=== PATIENT | female | born 2000 | race Caucasian/White ===

== ENCOUNTER 2022-04-08 15:19 | Emergency (ER) | payer OTHER, SELFPAY ==
[2022-04-08 15:39] VITALS: BP 147/80; PULSE 100; RESP 18; TEMP 36.8; O2SAT 99; BMI 21.7
[2022-04-08 15:58] LABS: MANUAL DIFF FLAG NO
[2022-04-08 16:00] LABS: Basophils Percent Auto 0.4 % (0-2); Eosinophils Absolute Auto 0.1 X10*3/uL (0.0-0.4); Eosinophils Percent Auto 0.9 % (0-4); Hematocrit 41.9 % (37.0-47.0); Hemoglobin 14.4 g/dl (12.0-16.0); Imm Gran Abs Auto 0.01 X10*3/uL (0.00-0.03); Imm Gran Pct Auto 0.1 % (0.0-0.4); Lymphocytes Absolute Auto 1.6 X10*3/uL (1.2-4.9); Lymphocytes Percent Auto 22.9 % (20-40); Mean Corpuscular HGB Conc 34.4 g/dl (31.0-35.0); Mean Corpuscular Hemoglobin 29.3 pg (27.0-33.0); Mean Corpuscular Volume 85.3 fL (80.0-98.0); Mean Platelet Volume 10.8 fL (9.4-12.3); Monocytes Absolute Auto 0.4 X10*3/uL (0.1-1.2); Monocytes Percent Auto 6.3 % (2-11); Neutrophils Absolute Auto 4.9 x10*3/uL (2.0-8.3); Neutrophils Percent Auto 69.4 % (45-73); Platelet Count 232 X10*3/uL (160-400); Red Blood Count 4.91 X10*6/uL (4.20-5.50); Red Cell Distribution Width 11.8 % (11.0-16.0)
[2022-04-08 16:01] LABS: Appearance Urine CLEAR; Color Urine YELLOW; Glucose Urine UA NEG (NEG); Leukocyte Esterase Urine NEG (NEG); Nitrite Urine NEG (NEG); PH 6.5 (5.0-8.0); Specific Gravity - Urine <= 1.005 (1.005-1.025); UACC Culture Trigger NO; Urine Blood TRACE (NEG); Urine Ketones NEG (NEG); Urine Protein NEG (NEG-TRACE)
[2022-04-08 16:09] LABS: UPreg QC Valid YES; Urine Pregnancy NEGATIVE (NEGATIVE)
[2022-04-08 16:15] LABS: Anion Gap 13 (12-20); Blood Urea Nitrogen 9 mg/dL (9-16); Calcium 10.1 mg/dL (8.4-10.2); Carbon Dioxide 23 mmol/L (22-29); Chloride 106 mmol/L (96-108); Creatinine Clr Calc Pharmacy 80.6; Estimated Glomerular Filt Rate > 60; Glucose Random 108 mg/dL (60-115); Lipase 30 U/L (8-78); Sodium 138 mmol/L (135-145)
[2022-04-08 16:36] LABS: Bacteria Urine 1+ /LPF; RBC Urine 0 /HPF (0); Squamous Epithelial Cell Urine 2+ /LPF; WBC Urine 0-2 /HPF (0-4)
== END 2022-04-09 01:41 | disposition left against medical advice (07) ==
LOC: HO.ED 04-09 01:38
PROVIDERS: Emergency Provider Emergency Medicine
DX: R10.84 Generalized abdominal pain (principal); R11.2 Nausea with vomiting, unspecified; R42 Dizziness and giddiness; Z79.899 Other long term (current) drug therapy
CPT/HCPCS: 36415; 80048; 81001; 81003; 81025; 83690; 85025; 99283

== ENCOUNTER 2022-04-12 17:18 | Inpatient (IN) | payer OTHER, SELFPAY ==
[2022-04-12 17:42] VITALS: BP 121/79; PULSE 72; RESP 18; TEMP 37.2; O2SAT 100; BMI 47.9
--- NOTE | 2022-04-12 17:42 | ED.PSYCH ---
HPI - Psych General Stated Complaint: sectioned- behavioral pod Time Seen by Provider: 04/12/22 17:33 Source: patient Mode of arrival: ambulatory Limitations: no limitations History of Present Illness HPI Narrative: Patient comes to the emergency room complaining of depression. Patient denies suicidal ideation. However, patient states that for the last few years her depression has gradually been getting much worse. Patient states that today she had a breakdown. Patient believes that in patient will be best for her. Patient states that she has never had treatment for depression. Patient denies using drugs. Denies suicidal or homicidal ideation Related Data Allergies Allergy/AdvReac Type Severity Reaction Status Date / Time No Known Allergies Allergy Verified 04/08/22 15:39 [No Known Allergies*] Review of Systems Review of Systems: Constitutional : No Weight loss, No Fever, No Chills, No Night Sweats, No Fatigue, No Malaise ENT/Mouth : No Hearing loss, No Ear Pain, No Nasal Congestion, No Sinus Pain, No Hoarseness, No sore throat, No Rhinorrhea, No Swallowing Difficulty Eyes: No Eye Pain, No Swelling, No Redness, No Foreign Body, No Discharge, No Vision Changes Cardiovascular : No Chest Pain, No SOB, No Dyspnea on Exertion, No Orthopnea, No Edema, No Palpitations Respiratory : No Cough, No Sputum, No Wheezing, No Smoke Exposure, No Dyspnea Gastrointestinal : No Nausea, No Vomiting, No Diarrhea, No Constipation, No abdominal Pain, No Hematochezia, No Melena Genitourinary : no irregular bleeding, No Dysuria, No Urinary Frequency, No Hematuria, No Urinary Incontinence, No Urgency, No Flank Pain, No Urinary Flow Changes, No Hesitancy Musculoskeletal : No joint pain, No Myalgias, No Joint Swelling Skin : No Skin Lesions, No rash Neuro : No Weakness, No Numbness, No Paresthesias, No Loss of Consciousness, No Dizziness, No Headache Psych : Complaining of depression, anxiety, breakdowns Heme/Lymph: No Bruising, No Bleeding,No Lymphadenopathy Endocrine : No Polyuria, No Polydipsia, No Temperature Intolerance Physical Exam Const: Other: Appearance: Alert. Oriented X3. Eyes: Pupils equal, round and reactive to light. ENT: Pharynx normal. Neck: Normal inspection. Neck supple. No lymph nodes noted. No crepitus CVS: Normal heart rate and rhythm. Pulses normal. Normal S1 and S2 Respiratory: No respiratory distress. Breath sounds normal. No Wheezing. No rales Abdomen: Soft and nontender. No rigidity. No distention. Skin: Skin warm and dry. Normal skin color. Normal skin turgor. Extremities: No lower extremity edema. No Lacerations. No Rash Neuro: Oriented X 3. No motor deficit. No sensory deficit. Moving all extremities. No slurred speech. CN 2 through 12 grossly intact Psych: calm, cooperative, teary Course Course Course Narrative: Patient is not suicidal. Not on a Section 12. Patient is willing to stay, patient would like inpatient treatment, believes that would be best for her. Urinalysis, U tox in U pending. [facility] network consult pending Physician observation started at 17:45 Discharge Plan Discharge Clinical Impression: Depression Patient Disposition: Still a Patient
[2022-04-12 18:16] LABS: Appearance Urine CLEAR; Color Urine YELLOW; Glucose Urine UA NEG (NEG); Leukocyte Esterase Urine NEG (NEG); Nitrite Urine NEG (NEG); PH 6.5 (5.0-8.0); Specific Gravity - Urine <= 1.005 (1.005-1.025); UACC Culture Trigger NO; Urine Blood 3+ (NEG); Urine Ketones NEG (NEG); Urine Protein NEG (NEG-TRACE)
[2022-04-12 18:18] LABS: UPreg QC Valid YES; Urine Pregnancy NEGATIVE (NEGATIVE)
[2022-04-12 18:25] LABS: Bacteria Urine 1+ /LPF; Squamous Epithelial Cell Urine 1+ /LPF; WBC Urine 0 /HPF (0-4)
[2022-04-12 18:30] LABS: Amphetamine Screen Urine Not Detected (Not Detect); Barbiturates, Urine Not Detected (Not Detect); Benzodiazepines Screen Urine Not Detected (Not Detect); COVID-19 Test Negative (Negative); Cannabinoid Screen Urine POSITIVE (Not Detect); Cocaine Screen Urine Not Detected (Not Detect); Fentanyl, urine Not Detected (Not Detect); IDNOW Serial# 16C4AD1C; Opiate Screen Urine Not Detected (Not Detect); Phencyclidine Screen Urine Not Detected (Not Detect)
--- NOTE | 2022-04-12 21:00 | MHC.CARE ---
Pt has been accepted for admission to . Auth number [id number] approved by unassigned for 3 days.
[2022-04-13] MEDS: Milk of Magnesia 30 ML ORAL.SUSP PO ×2 (00:56→23:36)
[2022-04-13] MEDS: traZODone HCL 50 MG TABLET PO ×2 (00:56→23:36)
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
[2022-04-13 08:04] VITALS: BP 116/76; PULSE 73; TEMP 37; O2SAT 98
[2022-04-13] MEDS: Magnesium Hydrox/Alum Hydrox 30 ML ORAL.SUSP PO (09:23)
[2022-04-13] MEDS: hydrOXYzine HCL 25 MG TABLET PO ×2 (12:20→23:36)
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
[2022-04-13 22:19] VITALS: BP 126/74; PULSE 76; TEMP 36.6; O2SAT 97
--- NOTE | 2022-04-14 02:05 | PC.NURSE ---
MOM given x2 days for c/o constipation
[2022-04-14 06:00] VITALS: BP 124/58; PULSE 78; TEMP 36.4; O2SAT 99
[2022-04-14 17:41] VITALS: BP 111/59; PULSE 100; TEMP 36.7; O2SAT 96
[2022-04-14] MEDS: Escitalopram Oxalate 5 MG TABLET PO (20:50)
--- NOTE | 2022-04-14 22:04 | P.PNPSI_ITS ---
Subjective Subjective Date of Service: 04/14/22 Reason For Visit: sectioned- behavioral pod Subjective Notes: [place] Warning and Conditional Voluntary Healthcare Proxy: No Guardianship: No Medical Problems Affecting Mental Status: No Interim History: Patient seen and discussed with team. I evaluated the pt today and upon inquiry she reports she is depressed because ?I hold stuff in for so long.? She denies SI, says she has never been suicidal. Sx of depression include ?I feel lonely,? crying episodes. She has been ruminating on the past and says ?I feel like a failure, everything that happened was my fault.? She reports onset of depression in high school. Says ?a lot of people failed me.? Pt has a 2 y.o. Daughter who is with her dad, although pt has full custody. Per pt, ?I do a great job, im a really great mother, that?s whats keeping me going.? Says she struggles with anger, will yell at her aunt, easily annoyed, ?Im taking it [her anger] out on the wrong people.?? Reports her anger does not let her walk away, ?I want to argue back.? She is not getting as much sleep as she would like, as her daughter is hyper, active. Pt says she feels ?tired,? ?down.? Also says she is ?overthinking stuff,? feels stressed. Doesnt want to leave the house, wants to be alone due to anxiety, ?I do shake a lot.? Denies A/VH. Endorses PTSD sx, i.e. hypervigilant, feels ?scared? around a lot of people, some nightmares, and flashbacks. Denies issues with self care. I spoke with pt?s Aunt, Salome, who says pt has severe depression. Her aunt denies having concerns of pt hurting herself or others, denies concerns with her parenting. However, says she is ?Tired of trying to help her? as she is aging and has health issues, she is supportive of pt seeking psychiatric help. Discusses that pt has anger that is easily set off.? In the milieu, patient is safe and appropriate in behavior. Denies SI/SIB/HI upon inquiry. Denies irritability or assaultive ideation. Says she feels safe. Attending Groups: Intermittent Review of Systems Acute medical concerns: No Medical Review of Systems: unchanged Mental Status Exam Mental Status Exam Narrative: A&O. Well groomed, good hygiene, normal body habitus/ petite. Good eye contact, attentive. No Tics or Tremors. No abnormal involuntary movements. Calm, cooperative, engaged. Non-pressured speech, spontaneous with regular rate and rhythm, normal volume and prosody. No prolonged speech latency or dysarthria. Mood is ?depressed,? affect is appropriate. Denies SI/SIB/HI upon inquiry. Denies A/VH or delusional thought content. Thoughts are coherent, organized. No known cognitive or memory impairment. Insight/ Judgment fair and adequate. Diagnostics Vital Signs (24Hr): Vital Signs - 24 hr 04/13/22 22:19 04/14/22 06:00 04/14/22 17:41 Temperature 97.8 F 97.5 F 98.0 F Pulse Rate 76 78 100 Blood Pressure 126/74 124/58 L 111/59 L Pulse Oximetry 97 99 96 BMI result Body Mass Index 47.9 Medications Medications Current Medications Acetaminophen (Acetaminophen 325 Mg Tablet) 650 mg PO Q6H PRN PRN Reason: Headache/Pain Mild Scale (1-3) Al Hydroxide/Mg Hydroxide (Magnesium Hydrox/Alum Hydrox 30 Ml Oral.Susp) 30 ml PO Q6H PRN PRN Reason: Heartburn/Nausea Last Admin: 04/13/22 09:23 Dose: 30 ml Documented by: Escitalopram Oxalate (Escitalopram Oxalate 5 Mg Tablet) 5 mg PO BEDTIME KI Last Admin: 04/14/22 20:50 Dose: 5 mg Documented by: Hydroxyzine HCl (Hydroxyzine Hcl 25 Mg Tablet) 25 mg PO Q6H PRN PRN Reason: Anxiety Last Admin: 04/13/22 23:36 Dose: 25 mg Documented by: Magnesium Hydroxide (Milk Of Magnesia 30 Ml Oral.Susp) 30 ml PO DAILY PRN PRN Reason: Constipation Last Admin: 04/13/22 23:36 Dose: 30 ml Documented by: Trazodone HCl (Trazodone Hcl 50 Mg Tablet) 50 mg PO BEDTIME PRN PRN Reason: Insomnia Last Admin: 04/13/22 23:36 Dose: 50 mg Documented by: Allergies Allergies Allergy/AdvReac Type Severity Reaction Status Date / Time No Known Allergies Allergy Verified 04/08/22 15:39 [No Known Allergies*] Assessment & Plan Assessment & Plan (1) MDD (major depressive disorder), recurrent episode, moderate: Status: Acute Code(s): F33.1 - Major depressive disorder, recurrent, moderate (2) Post traumatic stress disorder (PTSD): Status: Acute Code(s): F43.10 - Post-traumatic stress disorder, unspecified Plan Anika is a 21 y.o. Female who carries a dx of MDD recurrent and PTSD. She arrived to [facility] [place] ED due to worsening depression and anger issues and said that she had a ?breakdown. She denied SI/SIB. Utox positive for cannabis. No alcohol abuse. No previous psych hx other than brief OP therapy. Plan: Pt is asleep, declined interview when I gently tried to wake her. 04/14/22: start lexapro 5 mg, increase to 10 mg as tolerated to target sx of depression, anxiety, and irritability. Reviewed risks and benefits including black box warning. Q15 min safety checks, CV Monitor response to medications. Monitor for safety in the milieu. Discharge on stabilization. Patient seen. Chart reviewed. Discussed with team. Obtain collateral contact info?as needed I spent minutes with the patient and/or on the patient floor today, greater than?50% of which was spent counseling/coordinating care. Patient educated on: medication risk/benefits Reason for contiued inpatient stay Substantial Risk for: med/psych decompensation
[2022-04-15 06:42] VITALS: BP 111/63; PULSE 75; RESP 17; TEMP 36.6; O2SAT 96
[2022-04-15] MEDS: Magnesium Hydrox/Alum Hydrox 30 ML ORAL.SUSP PO (08:56)
[2022-04-15] MEDS: hydrOXYzine HCL 25 MG TABLET PO (14:05)
--- NOTE | 2022-04-15 16:58 | HO.PSYCHPN ---
Subjective Subjective Date of Service: 04/15/22 Reason For Visit: sectioned- behavioral pod Healthcare Proxy: No Guardianship: No Medical Problems Affecting Mental Status: No Interim History: This is a first for me. Reports mood symptoms-offers descriptives-crying, overthinking, long hx of depression, anxiety, anger-anger increases depression. I never got help, I messed up and I know I cannot do it myself. I wonder if it is bipolar-I can be nice, a B-face a sad face. I talk to myself about change, about telling my story. Anger is my problem. I have no friends, I trust no one, I have been out in space it feels like for a long time. Tearful, please help me, OK? Reports her mom heard voices Reports living in [facility] [place] 14[facility]19yo Reports ?post depressive sx Reports hx of fall from a third floor building at age 5 Medication Compliance: Yes Side effects from medications: Yes (some GI distress she reports) Attending Groups: Yes Review of Systems Acute medical concerns: No Medical Review of Systems: unchanged Review of Systems Reports behavioral changes Psychiatric: Reports abnormal sleep pattern, Reports anxiety, Reports behavioral changes, Reports depression, Reports difficulty concentrating, Reports hopelessness, Reports irritability, Reports anhedonia, Reports mood swings, Reports homicidal ideation and Reports suicidal ideation Mental Status Exam Mental Status Exam Patient Appearance: Fatigued Patient Orientation: Person, Place, Time and Situation Level of Consciousness: Alert Patient Behavior: Appropriate, Talkative, Cooperative and Good Eye Contact Mood Description: Depressed Affect Description: Flat and Sad Patient Cognition Impaired: No Ability to Follow Directions: Good Speech Pattern: Spontaneous Speech Memory Description: Intact Hallucinations: None Delusions: Not Present Perceptual Disturbances: Depersonalization and Derealization Thought Process: Distracted and Rumination Thought Content: positive for [place], positive for Circumstantial and positive for Suicidal Ideation Depressive Symptoms: Increased Anxiety, Increased Irritability, Difficulty Sleeping, Crying Spells, Loss of Int. in Activity, Feelings of Worthlessness, Hopelessness, Isolating-Friends/Family, Unhappiness, Increased Fatigue, Thoughts of /Suicide, Low Self Esteem, Loss of Energy and Difficulty Concentrating Judgement: Fair Diagnostics Vital Signs (24Hr): Vital Signs - 24 hr 04/14/22 17:41 04/15/22 06:42 Temperature 98.0 F 97.9 F Pulse Rate 100 75 Respiratory Rate 17 Blood Pressure 111/59 L 111/63 Pulse Oximetry 96 96 BMI result Body Mass Index 47.9 Medications Medications Current Medications Acetaminophen (Acetaminophen 325 Mg Tablet) 650 mg PO Q6H PRN PRN Reason: Headache/Pain Mild Scale (1-3) Al Hydroxide/Mg Hydroxide (Magnesium Hydrox/Alum Hydrox 30 Ml Oral.Susp) 30 ml PO Q6H PRN PRN Reason: Heartburn/Nausea Last Admin: 04/15/22 08:56 Dose: 30 ml Documented by: Escitalopram Oxalate (Escitalopram Oxalate 5 Mg Tablet) 5 mg PO BEDTIME KI Last Admin: 04/14/22 20:50 Dose: 5 mg Documented by: Hydroxyzine HCl (Hydroxyzine Hcl 25 Mg Tablet) 25 mg PO Q6H PRN PRN Reason: Anxiety Last Admin: 04/15/22 14:05 Dose: 25 mg Documented by: Magnesium Hydroxide (Milk Of Magnesia 30 Ml Oral.Susp) 30 ml PO DAILY PRN PRN Reason: Constipation Last Admin: 04/13/22 23:36 Dose: 30 ml Documented by: Trazodone HCl (Trazodone Hcl 50 Mg Tablet) 50 mg PO BEDTIME PRN PRN Reason: Insomnia Last Admin: 04/13/22 23:36 Dose: 50 mg Documented by: Allergies Allergies Allergy/AdvReac Type Severity Reaction Status Date / Time No Known Allergies Allergy Verified 04/08/22 15:39 [No Known Allergies*] Assessment & Plan Assessment & Plan (1) MDD (major depressive disorder), recurrent episode, moderate: Status: Acute Code(s): F33.1 - Major depressive disorder, recurrent, moderate (2) Post traumatic stress disorder (PTSD): Status: Acute Code(s): F43.10 - Post-traumatic stress disorder, unspecified Plan Anika is a 21 y.o. Female who carries a dx of MDD recurrent and PTSD. She arrived to [facility] due to worsening depression and anger issues and said that she had a ?breakdown. She denied SI/SIB. Utox positive for cannabis. No alcohol abuse. No previous psych hx other than brief OP therapy. Plan: Pt is asleep, declined interview when I gently tried to wake her. 04/14/22: start lexapro 5 mg, increase to 10 mg as tolerated to target sx of depression, anxiety, and irritability. Reviewed risks and benefits including black box warning. 04/15/22: Continue current plan. Q15 min safety checks, CV Monitor response to medications. Monitor for safety in the milieu. Discharge on stabilization. Patient seen. Chart reviewed. Discussed with team. Obtain collateral contact info?as needed I spent minutes with the patient and/or on the patient floor today, greater than?50% of which was spent counseling/coordinating care. Patient educated on: therapeutic strategies Informed Consent: further education needed Reason for contiued inpatient stay Substantial Risk for: harm to self, inability to function and rapid decompensation
[2022-04-15] MEDS: hydrOXYzine HCL 50 MG TABLET PO ×2 (17:58→23:52)
[2022-04-15 18:00] VITALS: BP 132/87; PULSE 97; RESP 16; TEMP 36.6
[2022-04-15] MEDS: Escitalopram Oxalate 5 MG TABLET PO (21:36)
[2022-04-16] MEDS: traZODone HCL 50 MG TABLET PO (00:29)
[2022-04-16 06:00] VITALS: BP 114/62; PULSE 82; RESP 16; TEMP 36.5; O2SAT 98
[2022-04-16] MEDS: hydrOXYzine HCL 50 MG TABLET PO (08:41)
[2022-04-16 09:14] LABS: Estimated Average Glucose 97 mg/dL
[2022-04-16 09:46] LABS: Cholesterol 144 mg/dL; HDL Cholesterol 51 mg/dL; LDL Cholesterol Calculated 86 mg/dl; Triglycerides 38 mg/dL
[2022-04-16 09:50] LABS: Thyroid Stimulating Hormone 1.03 uIU/mL (0.32-4.0)
[2022-04-16 10:21] LABS: Folate 14.4 ng/mL (> or = 4.0); Vitamin B12 < 146 pg/mL (200-900)
[2022-04-16] MEDS: LORazepam 1 MG TABLET PO (12:04)
[2022-04-16] MEDS: OLANZapine 5 MG TABLET PO ×2 (15:30→22:09)
--- NOTE | 2022-04-16 18:43 | HO.PSYCHPN ---
Subjective Subjective Date of Service: 04/16/22 Reason For Visit: sectioned- behavioral pod Interim History: Met with pt and Luis M DINERO today. Pt's aunt was unable to make the meeting due to illness. As a result we will call her on 04/17 with pt to review her concerns. Pt was very forthcoming about symptoms, concerns and struggles. Reports anger, mood swings, depression, anxiety and at times feeling if she will explode. Discussed mood stabilizer trial and she agrees. Medication Compliance: Yes Side effects from medications: No Attending Groups: Yes Review of Systems Acute medical concerns: No Medical Review of Systems: unchanged Review of Systems Reports behavioral changes Psychiatric: Reports abnormal sleep pattern, Reports anxiety, Reports behavioral changes, Reports depression, Reports difficulty concentrating, Reports hopelessness, Reports irritability, Reports anhedonia, Reports mood swings, Reports homicidal ideation and Reports suicidal ideation Mental Status Exam Mental Status Exam Patient Appearance: Fatigued Patient Orientation: Person, Place, Time and Situation Level of Consciousness: Alert Patient Behavior: Appropriate, Talkative, Cooperative and Good Eye Contact Mood Description: Depressed Affect Description: Flat and Sad Patient Cognition Impaired: No Ability to Follow Directions: Good Speech Pattern: Spontaneous Speech Memory Description: Intact Hallucinations: None Delusions: Not Present Perceptual Disturbances: Depersonalization and Derealization Thought Process: Distracted and Rumination Thought Content: positive for [place], positive for [place] and positive for Suicidal Ideation Depressive Symptoms: Increased Anxiety, Increased Irritability, Difficulty Sleeping, Crying Spells, Loss of Int. in Activity, Feelings of Worthlessness, Hopelessness, Isolating-Friends/Family, Unhappiness, Increased Fatigue, Thoughts of /Suicide, Low Self Esteem, Loss of Energy and Difficulty Concentrating Judgement: Fair Diagnostics Vital Signs (24Hr): Vital Signs - 24 hr 04/16/22 06:00 Temperature 97.7 F Pulse Rate 82 Respiratory Rate 16 Blood Pressure 114/62 Pulse Oximetry 98 BMI result Body Mass Index 47.9 Labs Labs: Laboratory Results - last 48 hr 04/16/22 04/16/22 04/16/22 08:22 08:22 08:22 Estimat Average Glucose 97 Hemoglobin A1c % 5.0 Triglycerides 38 Cholesterol 144 LDL Cholesterol, Calc 86 HDL Cholesterol 51 Vitamin B12 25-OH Vitamin D Total 9.0 Folate TSH 1.03 04/16/22 08:22 Estimat Average Glucose Hemoglobin A1c % Triglycerides Cholesterol LDL Cholesterol, Calc HDL Cholesterol Vitamin B12 < 146 L 25-OH Vitamin D Total Folate 14.4 TSH Medications Medications Current Medications Acetaminophen (Acetaminophen 325 Mg Tablet) 650 mg PO Q6H PRN PRN Reason: Headache/Pain Mild Scale (1-3) Al Hydroxide/Mg Hydroxide (Magnesium Hydrox/Alum Hydrox 30 Ml Oral.Susp) 30 ml PO Q6H PRN PRN Reason: Heartburn/Nausea Last Admin: 04/15/22 08:56 Dose: 30 ml Documented by: Escitalopram Oxalate (Escitalopram Oxalate 5 Mg Tablet) 5 mg PO BEDTIME KI Last Admin: 04/15/22 21:36 Dose: 5 mg Documented by: Hydroxyzine HCl (Hydroxyzine Hcl 50 Mg Tablet) 50 mg PO Q6H PRN PRN Reason: Anxiety Last Admin: 04/16/22 08:41 Dose: 50 mg Documented by: Lorazepam (Lorazepam 1 Mg Tablet) 1 mg PO Q4H PRN PRN Reason: Anxiety Last Admin: 04/16/22 12:04 Dose: 1 mg Documented by: Magnesium Hydroxide (Milk Of Magnesia 30 Ml Oral.Susp) 30 ml PO DAILY PRN PRN Reason: Constipation Last Admin: 04/13/22 23:36 Dose: 30 ml Documented by: Olanzapine (Olanzapine 5 Mg Tablet) 5 mg PO BEDTIME KI Olanzapine (Olanzapine 5 Mg Tablet) 5 mg PO Q4H PRN PRN Reason: anger, agitation Last Admin: 04/16/22 15:30 Dose: 5 mg Documented by: Trazodone HCl (Trazodone Hcl 50 Mg Tablet) 50 mg PO BEDTIME PRN PRN Reason: Insomnia Last Admin: 04/16/22 00:29 Dose: 50 mg Documented by: Allergies Allergies Allergy/AdvReac Type Severity Reaction Status Date / Time No Known Allergies Allergy Verified 04/08/22 15:39 [No Known Allergies*] Assessment & Plan Assessment & Plan (1) MDD (major depressive disorder), recurrent episode, moderate: Status: Acute Code(s): F33.1 - Major depressive disorder, recurrent, moderate (2) Post traumatic stress disorder (PTSD): Status: Acute Code(s): F43.10 - Post-traumatic stress disorder, unspecified Plan Anika is a 21 y.o. Female who carries a dx of MDD recurrent and PTSD. She arrived to [facility] due to worsening depression and anger issues and said that she had a ?breakdown. She denied SI/SIB. Utox positive for cannabis. No alcohol abuse. No previous psych hx other than brief OP therapy. Plan: Pt is asleep, declined interview when I gently tried to wake her. 04/14/22: start lexapro 5 mg, increase to 10 mg as tolerated to target sx of depression, anxiety, and irritability. Reviewed risks and benefits including black box warning. 04/15/22: Continue current plan. 04/16/22: Olanzapine 5 mg hs and 5 mg q 4 hours prn agitation Q15 min safety checks, CV Monitor response to medications. Monitor for safety in the milieu. Discharge on stabilization. Patient seen. Chart reviewed. Discussed with team. Obtain collateral contact info?as needed I spent minutes with the patient and/or on the patient floor today, greater than?50% of which was spent counseling/coordinating care. Patient educated on: medication risk/benefits and therapeutic strategies Informed Consent: further education needed Reason for contiued inpatient stay Substantial Risk for: harm to self, inability to function and rapid decompensation
[2022-04-16] MEDS: Escitalopram Oxalate 5 MG TABLET PO (22:09)
[2022-04-17 06:00] VITALS: BP 111/62; PULSE 79; RESP 16; TEMP 36.5; O2SAT 98
[2022-04-17] MEDS: LORazepam 1 MG TABLET PO (09:13)
[2022-04-17] MEDS: OLANZapine 5 MG TABLET PO ×2 (12:37→21:16)
--- NOTE | 2022-04-17 16:47 | P.PNPSI_ITS ---
Subjective Subjective Date of Service: 04/17/22 Reason For Visit: sectioned- behavioral pod Subjective Notes: Conditional Voluntary Healthcare Proxy: No Guardianship: No Medical Problems Affecting Mental Status: No Interim History: Pt discussed sx of morning anxiety, depression, and I overthink things a lot. Tolerating Olanzapine, reports she is able to sleep. Aunt Chika is ill and unable to come in today. We will schedule a telephone appt for 04/18 to review her concerns. Pt agrees. Medication Compliance: Yes Side effects from medications: No Attending Groups: Intermittent Review of Systems Acute medical concerns: No ?Hx of childhood asthma-? exacerbation Medical Review of Systems: unchanged Review of Systems Psychiatric: Reports anxiety and Reports mood swings Mental Status Exam Mental Status Exam Patient Appearance: Appropriate Patient Orientation: Person, Place, Time and Situation Level of Consciousness: Alert Patient Behavior: Talkative, Cooperative and Good Eye Contact Mood Description: Anxious Affect Description: Anxious Patient Cognition Impaired: No Ability to Follow Directions: Good Speech Pattern: Spontaneous Speech Memory Description: Episodic Impaired Hallucinations: None Delusions: Not Present Perceptual Disturbances: Depersonalization and Derealization Thought Process: Rumination Thought Content: positive for [place] and positive for Circumstantial Depressive Symptoms: Increased Anxiety, Hopelessness, Unhappiness, Low Self Esteem and Difficulty Concentrating Abnormal Motor Activity Signs and Symptoms: Restlessness Judgement: Fair Diagnostics Vital Signs (24Hr): Vital Signs - 24 hr 04/17/22 06:00 Temperature 97.7 F Pulse Rate 79 Respiratory Rate 16 Blood Pressure 111/62 Pulse Oximetry 98 BMI result Body Mass Index 47.9 Labs Labs: Laboratory Results - last 48 hr 04/16/22 04/16/22 04/16/22 08:22 08:22 08:22 Estimat Average Glucose 97 Hemoglobin A1c % 5.0 Triglycerides 38 Cholesterol 144 LDL Cholesterol, Calc 86 HDL Cholesterol 51 Vitamin B12 25-OH Vitamin D Total 9.0 Folate TSH 1.03 04/16/22 08:22 Estimat Average Glucose Hemoglobin A1c % Triglycerides Cholesterol LDL Cholesterol, Calc HDL Cholesterol Vitamin B12 < 146 L 25-OH Vitamin D Total Folate 14.4 TSH Medications Medications Current Medications Acetaminophen (Acetaminophen 325 Mg Tablet) 650 mg PO Q6H PRN PRN Reason: Headache/Pain Mild Scale (1-3) Al Hydroxide/Mg Hydroxide (Magnesium Hydrox/Alum Hydrox 30 Ml Oral.Susp) 30 ml PO Q6H PRN PRN Reason: Heartburn/Nausea Last Admin: 04/15/22 08:56 Dose: 30 ml Documented by: Escitalopram Oxalate (Escitalopram Oxalate 5 Mg Tablet) 5 mg PO BEDTIME KI Last Admin: 04/16/22 22:09 Dose: 5 mg Documented by: Hydroxyzine HCl (Hydroxyzine Hcl 50 Mg Tablet) 50 mg PO Q6H PRN PRN Reason: Anxiety Last Admin: 04/16/22 08:41 Dose: 50 mg Documented by: Lorazepam (Lorazepam 1 Mg Tablet) 1 mg PO Q4H PRN PRN Reason: Anxiety Last Admin: 04/17/22 09:13 Dose: 1 mg Documented by: Magnesium Hydroxide (Milk Of Magnesia 30 Ml Oral.Susp) 30 ml PO DAILY PRN PRN Reason: Constipation Last Admin: 04/13/22 23:36 Dose: 30 ml Documented by: Olanzapine (Olanzapine 5 Mg Tablet) 5 mg PO BEDTIME KI Last Admin: 04/16/22 22:09 Dose: 5 mg Documented by: Olanzapine (Olanzapine 5 Mg Tablet) 5 mg PO Q4H PRN PRN Reason: anger, agitation Last Admin: 04/17/22 12:37 Dose: 5 mg Documented by: Trazodone HCl (Trazodone Hcl 50 Mg Tablet) 50 mg PO BEDTIME PRN PRN Reason: Insomnia Last Admin: 04/16/22 00:29 Dose: 50 mg Documented by: Allergies Allergies Allergy/AdvReac Type Severity Reaction Status Date / Time No Known Allergies Allergy Verified 04/08/22 15:39 [No Known Allergies*] Assessment & Plan Assessment & Plan (1) MDD (major depressive disorder), recurrent episode, moderate: Status: Acute Code(s): F33.1 - Major depressive disorder, recurrent, moderate (2) Post traumatic stress disorder (PTSD): Status: Acute Code(s): F43.10 - Post-traumatic stress disorder, unspecified Plan Anika is a 21 y.o. Female who carries a dx of MDD recurrent and PTSD. She arrived [place] [facility] [place] due to worsening depression and anger issues and said that she had a ?breakdown. She denied SI/SIB. Utox positive for cannabis. No alcohol abuse. No previous psych hx other than brief OP therapy. Plan: Pt is asleep, declined interview when I gently tried to wake her. 04/14/22: start lexapro 5 mg, increase to 10 mg as tolerated to target sx of depression, anxiety, and irritability. Reviewed risks and benefits including black box warning. 04/15/22: Continue current plan. 04/16/22: Olanzapine 5 mg hs and 5 mg q 4 hours prn agitation 04/17/22: Continue current plan. Family contact 04/18 with aunt who is ill today. Q15 min safety checks, CV Monitor response to medications. Monitor for safety in the milieu. Discharge on stabilization. Patient seen. Chart reviewed. Discussed with team. Obtain collateral contact info?as needed I spent minutes with the patient and/or on the patient floor today, greater than?50% of which was spent counseling/coordinating care. Patient educated on: therapeutic strategies Informed Consent: understands and further education needed Reason for contiued inpatient stay Substantial Risk for: inability to function and rapid decompensation
[2022-04-17 18:00] VITALS: BP 107/54; PULSE 99; RESP 16; TEMP 37; O2SAT 98
[2022-04-17] MEDS: Escitalopram Oxalate 5 MG TABLET PO (21:16)
[2022-04-17] MEDS: traZODone HCL 50 MG TABLET PO (22:16)
--- NOTE | 2022-04-17 22:32 | PC.NURSE ---
The pt reported that she was scared by paralyzing nightmares that often occur before she wakes up. She told this RN that, That is why I sleep longer in the morning. Heydi Hernandez notified, recommended to defer issue to Azeb Espinoza
[2022-04-18] MEDS: hydrOXYzine HCL 50 MG TABLET PO ×2 (00:01→10:37)
[2022-04-18 00:11] VITALS: BP 143/88; PULSE 103; RESP 18; O2SAT 99
[2022-04-18 06:00] VITALS: BP 140/84; PULSE 130; RESP 18; O2SAT 98
[2022-04-18 07:00] VITALS: BMI 21.2
[2022-04-18] MEDS: LORazepam 1 MG TABLET PO ×3 (08:05→18:38)
[2022-04-18] MEDS: cloNIDine HCL 0.1 MG TABLET PO ×2 (12:09→19:36)
[2022-04-18 12:10] VITALS: BP 126/84; PULSE 113
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
[2022-04-18 18:41] VITALS: BP 108/67; PULSE 109
[2022-04-18] MEDS: OLANZapine 5 MG TABLET PO (19:36)
[2022-04-18] MEDS: Escitalopram Oxalate 10 MG TABLET PO (19:36)
[2022-04-18 19:37] VITALS: BP 119/86; PULSE 83
[2022-04-18] MEDS: traZODone HCL 50 MG TABLET PO (20:41)
[2022-04-19 06:00] VITALS: BP 123/72; PULSE 100; RESP 16; TEMP 36.9; O2SAT 98
[2022-04-19] MEDS: cloNIDine HCL 0.1 MG TABLET PO ×2 (09:03→20:03)
[2022-04-19] MEDS: LORazepam 1 MG TABLET PO (13:33)
--- NOTE | 2022-04-19 15:05 | HO.PSYCHPN ---
Subjective Subjective Date of Service: 04/19/22 Reason For Visit: sectioned- behavioral pod Subjective Notes: Conditional Voluntary Healthcare Proxy: No Guardianship: No Medical Problems Affecting Mental Status: No Interim History: Review of PTSD with pt who was active, engaged and asking appropriate questions. Anxiety continues to be prominent. [facility] application has been submitted. Medication Compliance: Yes Side effects from medications: No Attending Groups: Intermittent Review of Systems Acute medical concerns: No Medical Review of Systems: unchanged Review of Systems Psychiatric: Reports anxiety and Reports mood swings Mental Status Exam Mental Status Exam Patient Appearance: Appropriate Patient Orientation: Person, Place, Time and Situation Level of Consciousness: Alert Patient Behavior: Talkative, Cooperative and Good Eye Contact Mood Description: Anxious Affect Description: Anxious Patient Cognition Impaired: No Ability to Follow Directions: Good Speech Pattern: Spontaneous Speech Memory Description: Episodic Impaired Hallucinations: None Delusions: Not Present Perceptual Disturbances: Depersonalization and Derealization Thought Process: Rumination Thought Content: positive for [place] and positive for Circumstantial Depressive Symptoms: Increased Anxiety, Hopelessness, Unhappiness, Low Self Esteem and Difficulty Concentrating Abnormal Motor Activity Signs and Symptoms: Restlessness Judgement: Fair Diagnostics Vital Signs (24Hr): Vital Signs - 24 hr 04/18/22 18:41 04/18/22 19:37 04/19/22 06:00 Temperature 98.4 F Pulse Rate 109 H 83 100 Respiratory Rate 16 Blood Pressure 108/67 119/86 123/72 Pulse Oximetry 98 BMI result Body Mass Index 21.2 Medications Medications Current Medications Acetaminophen (Acetaminophen 325 Mg Tablet) 650 mg PO Q6H PRN PRN Reason: Headache/Pain Mild Scale (1-3) Al Hydroxide/Mg Hydroxide (Magnesium Hydrox/Alum Hydrox 30 Ml Oral.Susp) 30 ml PO Q6H PRN PRN Reason: Heartburn/Nausea Last Admin: 04/15/22 08:56 Dose: 30 ml Documented by: Clonidine HCl (Clonidine Hcl 0.1 Mg Tablet) 0.1 mg PO BID KI; Protocol Last Admin: 04/19/22 09:03 Dose: 0.1 mg Documented by: Escitalopram Oxalate (Escitalopram Oxalate 10 Mg Tablet) 10 mg PO BEDTIME KI Last Admin: 04/18/22 19:36 Dose: 10 mg Documented by: Hydroxyzine HCl (Hydroxyzine Hcl 50 Mg Tablet) 50 mg PO Q6H PRN PRN Reason: Anxiety Last Admin: 04/18/22 10:37 Dose: 50 mg Documented by: Lorazepam (Lorazepam 1 Mg Tablet) 1 mg PO Q4H PRN PRN Reason: Anxiety Last Admin: 04/19/22 13:33 Dose: 1 mg Documented by: Magnesium Hydroxide (Milk Of Magnesia 30 Ml Oral.Susp) 30 ml PO DAILY PRN PRN Reason: Constipation Last Admin: 04/13/22 23:36 Dose: 30 ml Documented by: Olanzapine (Olanzapine 5 Mg Tablet) 5 mg PO BEDTIME KI Last Admin: 04/18/22 19:36 Dose: 5 mg Documented by: Olanzapine (Olanzapine 5 Mg Tablet) 5 mg PO Q4H PRN PRN Reason: anger, agitation Last Admin: 04/17/22 12:37 Dose: 5 mg Documented by: Trazodone HCl (Trazodone Hcl 50 Mg Tablet) 50 mg PO BEDTIME PRN PRN Reason: Insomnia Last Admin: 04/18/22 20:41 Dose: 50 mg Documented by: Allergies Allergies Allergy/AdvReac Type Severity Reaction Status Date / Time No Known Allergies Allergy Verified 04/08/22 15:39 [No Known Allergies*] Assessment & Plan Assessment & Plan (1) MDD (major depressive disorder), recurrent episode, moderate: Status: Acute Code(s): F33.1 - Major depressive disorder, recurrent, moderate (2) Post traumatic stress disorder (PTSD): Status: Acute Code(s): F43.10 - Post-traumatic stress disorder, unspecified Plan Anika is a 21 y.o. Female who carries a dx of MDD recurrent and PTSD. She arrived to [facility] [place] [facility] due to worsening depression and anger issues and said that she had a ?breakdown. She denied SI/SIB. Utox positive for cannabis. No alcohol abuse. No previous psych hx other than brief OP therapy. Plan: Pt is asleep, declined interview when I gently tried to wake her. 04/14/22: start lexapro 5 mg, increase to 10 mg as tolerated to target sx of depression, anxiety, and irritability. Reviewed risks and benefits including black box warning. 04/15/22: Continue current plan. 04/16/22: Olanzapine 5 mg hs and 5 mg q 4 hours prn agitation 04/18/22: Increase Lexapro to 10 mg daily, Clonidine 0.1 mg bid 04/19/22: Klonopin 0.5 mg bid Q15 min safety checks, CV Monitor response to medications. Monitor for safety in the milieu. Discharge on stabilization. Patient seen. Chart reviewed. Discussed with team. Obtain collateral contact info?as needed I spent minutes with the patient and/or on the patient floor today, greater than?50% of which was spent counseling/coordinating care. Patient educated on: medication risk/benefits Informed Consent: understands and further education needed Reason for contiued inpatient stay Substantial Risk for: inability to function and rapid decompensation
[2022-04-19] MEDS: hydrOXYzine HCL 50 MG TABLET PO (17:13)
[2022-04-19 19:55] VITALS: BP 95/58; PULSE 94
[2022-04-19] MEDS: Escitalopram Oxalate 10 MG TABLET PO (21:54)
[2022-04-19] MEDS: clonazePAM 0.5 MG TABLET PO (21:54)
[2022-04-19] MEDS: OLANZapine 5 MG TABLET PO (21:54)
[2022-04-20] MEDS: clonazePAM 0.5 MG TABLET PO ×2 (08:37→21:20)
[2022-04-20] MEDS: cloNIDine HCL 0.1 MG TABLET PO ×2 (08:37→21:19)
[2022-04-20 08:39] VITALS: BP 129/66; PULSE 96; RESP 18; TEMP 36.6
[2022-04-20] MEDS: hydrOXYzine HCL 50 MG TABLET PO (13:42)
[2022-04-20] MEDS: OLANZapine 5 MG TABLET PO ×2 (15:51→21:20)
--- NOTE | 2022-04-20 16:07 | P.PNPSI_ITS ---
Subjective Subjective Date of Service: 04/20/22 Reason For Visit: sectioned- behavioral pod Interim History: Patient seen. Reports difficulty with being overwhelmed with activity on the unit. Says loud noises and patients being loud make her feel angry and she has to hold her anger inside. She is in control behaviorally. No side effects with the medications. Endorses occasional SI. No intent of harm to self or others. Review of Systems Review of Systems CVS: No c/o chest pain, palpitations, no SOB COLLECTIONS CURATOR: No c/o dizziness, headache GI: No c/o Nausea, Vomiting, diarrhea, constipation or heartburn Reports behavioral changes Psychiatric: Reports abnormal sleep pattern, Reports anxiety, Reports behavioral changes, Reports depression, Reports difficulty concentrating, Reports hopelessness, Reports irritability, Reports anhedonia, Reports mood swings, Reports homicidal ideation and Reports suicidal ideation Mental Status Exam Mental Status Exam Narrative: A&O. Well groomed, good hygiene, normal body habitus/ petite. Good eye contact, attentive. No Tics or Tremors. No abnormal involuntary movements. Calm, cooperative, engaged. Non-pressured speech, spontaneous with regular rate and rhythm, normal volume and prosody. No prolonged speech latency or dysarthria. Mood is ?sometimes I get angry,? affect is appropriate. Denies SI/SIB/HI upon inquiry. Denies A/VH or delusional thought content. Thoughts are coherent, organized. No known cognitive or memory impairment. Insight/ Judgment fair and adequate. Patient Appearance: Appropriate Patient Orientation: Person, Place, Time and Situation Level of Consciousness: Alert Patient Behavior: Talkative, Cooperative and Good Eye Contact Mood Description: Anxious Affect Description: Anxious Patient Cognition Impaired: No Ability to Follow Directions: Good Speech Pattern: Spontaneous Speech Memory Description: Episodic Impaired Diagnostics Vital Signs (24Hr): Vital Signs - 24 hr 04/19/22 19:55 04/20/22 08:39 Temperature 98 F Pulse Rate 94 96 Respiratory Rate 18 Blood Pressure 95/58 L 129/66 BMI result Body Mass Index 21.2 Medications Medications Current Medications Acetaminophen (Acetaminophen 325 Mg Tablet) 650 mg PO Q6H PRN PRN Reason: Headache/Pain Mild Scale (1-3) Al Hydroxide/Mg Hydroxide (Magnesium Hydrox/Alum Hydrox 30 Ml Oral.Susp) 30 ml PO Q6H PRN PRN Reason: Heartburn/Nausea Last Admin: 04/15/22 08:56 Dose: 30 ml Documented by: Clonazepam (Clonazepam 0.5 Mg Tablet) 0.5 mg PO BID KI Last Admin: 04/20/22 08:37 Dose: 0.5 mg Documented by: Clonidine HCl (Clonidine Hcl 0.1 Mg Tablet) 0.1 mg PO BID [facility]; Protocol Last Admin: 04/20/22 08:37 Dose: 0.1 mg Documented by: Escitalopram Oxalate (Escitalopram Oxalate 10 Mg Tablet) 10 mg PO BEDTIME KI Last Admin: 04/19/22 21:54 Dose: 10 mg Documented by: Hydroxyzine HCl (Hydroxyzine Hcl 50 Mg Tablet) 50 mg PO Q6H PRN PRN Reason: Anxiety Last Admin: 04/20/22 13:42 Dose: 50 mg Documented by: Lorazepam (Lorazepam 1 Mg Tablet) 1 mg PO Q4H PRN PRN Reason: Anxiety Last Admin: 04/19/22 13:33 Dose: 1 mg Documented by: Magnesium Hydroxide (Milk Of Magnesia 30 Ml Oral.Susp) 30 ml PO DAILY PRN PRN Reason: Constipation Last Admin: 04/13/22 23:36 Dose: 30 ml Documented by: Olanzapine (Olanzapine 5 Mg Tablet) 5 mg PO BEDTIME KI Last Admin: 04/19/22 21:54 Dose: 5 mg Documented by: Olanzapine (Olanzapine 5 Mg Tablet) 5 mg PO Q4H PRN PRN Reason: anger, agitation Last Admin: 04/20/22 15:51 Dose: 5 mg Documented by: Trazodone HCl (Trazodone Hcl 50 Mg Tablet) 50 mg PO BEDTIME PRN PRN Reason: Insomnia Last Admin: 04/18/22 20:41 Dose: 50 mg Documented by: Allergies Allergies Allergy/AdvReac Type Severity Reaction Status Date / Time No Known Allergies Allergy Verified 04/08/22 15:39 [No Known Allergies*] Assessment & Plan Assessment & Plan (1) MDD (major depressive disorder), recurrent episode, moderate: Status: Acute Code(s): F33.1 - Major depressive disorder, recurrent, moderate (2) Post traumatic stress disorder (PTSD): Status: Acute Code(s): F43.10 - Post-traumatic stress disorder, unspecified Plan Anika is a 21 y.o. Female who carries a dx of MDD recurrent and PTSD. [place] [facility] [place] due to worsening depression and anger issues and said that she had a ?breakdown. She denied SI/SIB. Utox positive for cannabis. No alcohol abuse. No previous psych hx other than brief OP therapy. Plan: Pt is asleep, declined interview when I gently tried to wake her. 04/14/22: start lexapro 5 mg, increase to 10 mg as tolerated to target sx of depression, anxiety, and irritability. Reviewed risks and benefits including black box warning. 04/15/22: Continue current plan. 04/16/22: Olanzapine 5 mg hs and 5 mg q 4 hours prn agitation 04/18/22: Increase Lexapro to 10 mg daily, Clonidine 0.1 mg bid 04/19/22: Klonopin 0.5 mg bid 04/20 Continue treatment plan. Q15 min safety checks, CV Monitor response to medications. Monitor for safety in the milieu. Discharge on stabilization. Patient seen. Chart reviewed. Discussed with team. Obtain collateral contact info?as needed I spent minutes with the patient and/or on the patient floor today, greater than?50% of which was spent counseling/coordinating care. Reason for contiued inpatient stay Substantial Risk for: harm to self and inability to function
[2022-04-20] MEDS: LORazepam 1 MG TABLET PO (17:27)
[2022-04-20 18:00] VITALS: BP 122/79; PULSE 68; TEMP 36.8
[2022-04-20] MEDS: traZODone HCL 50 MG TABLET PO (21:20)
[2022-04-20] MEDS: Escitalopram Oxalate 10 MG TABLET PO (21:20)
[2022-04-21] MEDS: clonazePAM 0.5 MG TABLET PO ×2 (08:25→20:05)
[2022-04-21] MEDS: cloNIDine HCL 0.1 MG TABLET PO (08:25)
[2022-04-21 08:30] VITALS: BP 108/67; PULSE 85; TEMP 36.4; O2SAT 97
[2022-04-21 10:10] VITALS: BP 113/61; BP 96/66; PULSE 82; RESP 16
[2022-04-21] MEDS: OLANZapine 5 MG TABLET PO ×3 (10:21→22:04)
--- NOTE | 2022-04-21 10:36 | P.PNPSI_ITS ---
Subjective Subjective Date of Service: 04/21/22 Reason For Visit: sectioned- behavioral pod Interim History: Patient seen. Discussed with team. Patient reported dizziness after receiving Clonidine this morning. Her VS were checked and she had some orthostatic BP changes. She is in control behaviorally. Endorses occasional SI. No intent of harm to self or others. 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 Well groomed, good hygiene, normal body habitus/ petite. Good eye contact, attentive. No Tics or Tremors. No abnormal involuntary movements. Calm, cooperative, engaged. Non-pressured speech, spontaneous with regular rate and rhythm, normal volume and prosody. No prolonged speech latency or dysarthria. Mood is ?anxious? affect is appropriate. Denies SI/SIB/HI upon inquiry. Denies A/VH or delusional thought content. Thoughts are coherent, organized. No known cognitive or memory impairment. Insight/ Judgment fair and adequate. Patient Appearance: Appropriate Patient Orientation: Person, Place, Time and Situation Level of Consciousness: Alert Patient Behavior: Talkative, Cooperative and Good Eye Contact Mood Description: Anxious Affect Description: Anxious Patient Cognition Impaired: No Ability to Follow Directions: Good Speech Pattern: Spontaneous Speech Memory Description: Episodic Impaired Diagnostics Vital Signs (24Hr): Vital Signs - 24 hr 04/20/22 18:00 Temperature 98.3 F Pulse Rate 68 Blood Pressure 122/79 BMI result Body Mass Index 21.2 Medications Medications Current Medications Acetaminophen (Acetaminophen 325 Mg Tablet) 650 mg PO Q6H PRN PRN Reason: Headache/Pain Mild Scale (1-3) Al Hydroxide/Mg Hydroxide (Magnesium Hydrox/Alum Hydrox 30 Ml Oral.Susp) 30 ml PO Q6H PRN PRN Reason: Heartburn/Nausea Last Admin: 04/15/22 08:56 Dose: 30 ml Documented by: Clonazepam (Clonazepam 0.5 Mg Tablet) 0.5 mg PO BID KI Last Admin: 04/21/22 08:25 Dose: 0.5 mg Documented by: Clonidine HCl (Clonidine Hcl 0.1 Mg Tablet) 0.1 mg PO BID KI; Protocol Last Admin: 04/21/22 08:25 Dose: 0.1 mg Documented by: Escitalopram Oxalate (Escitalopram Oxalate 10 Mg Tablet) 10 mg PO BEDTIME KI Last Admin: 04/20/22 21:20 Dose: 10 mg Documented by: Hydroxyzine HCl (Hydroxyzine Hcl 50 Mg Tablet) 50 mg PO Q6H PRN PRN Reason: Anxiety Last Admin: 04/20/22 13:42 Dose: 50 mg Documented by: Lorazepam (Lorazepam 1 Mg Tablet) 1 mg PO Q4H PRN PRN Reason: Anxiety Last Admin: 04/20/22 17:27 Dose: 1 mg Documented by: Magnesium Hydroxide (Milk Of Magnesia 30 Ml Oral.Susp) 30 ml PO DAILY PRN PRN Reason: Constipation Last Admin: 04/13/22 23:36 Dose: 30 ml Documented by: Olanzapine (Olanzapine 5 Mg Tablet) 5 mg PO BEDTIME KI Last Admin: 04/20/22 21:20 Dose: 5 mg Documented by: Olanzapine (Olanzapine 5 Mg Tablet) 5 mg PO Q4H PRN PRN Reason: anger, agitation Last Admin: 04/21/22 10:21 Dose: 5 mg Documented by: Trazodone HCl (Trazodone Hcl 50 Mg Tablet) 50 mg PO BEDTIME PRN PRN Reason: Insomnia Last Admin: 04/20/22 21:20 Dose: 50 mg Documented by: Allergies Allergies Allergy/AdvReac Type Severity Reaction Status Date / Time No Known Allergies Allergy Verified 04/08/22 15:39 [No Known Allergies*] Assessment & Plan Assessment & Plan (1) MDD (major depressive disorder), recurrent episode, moderate: Status: Acute Code(s): F33.1 - Major depressive disorder, recurrent, moderate (2) Post traumatic stress disorder (PTSD): Status: Acute Code(s): F43.10 - Post-traumatic stress disorder, unspecified Plan Anika is a 21 y.o. Female who carries a dx of MDD recurrent and PTSD. She arrived to [facility] [place] [facility] due to worsening depression and anger issues and said that she had a ?breakdown. She denied SI/SIB. Utox positive for cannabis. No alcohol abuse. No previous psych hx other than brief OP therapy. Plan: Pt is asleep, declined interview when I gently tried to wake her. 04/14/22: start lexapro 5 mg, increase to 10 mg as tolerated to target sx of depression, anxiety, and irritability. Reviewed risks and benefits including black box warning. 04/15/22: Continue current plan. 04/16/22: Olanzapine 5 mg hs and 5 mg q 4 hours prn agitation 04/18/22: Increase Lexapro to 10 mg daily, Clonidine 0.1 mg bid 04/19/22: Klonopin 0.5 mg bid 04/20 Continue treatment plan. 04/21. DC Clonidine secondary to dizziness and orthostasis. Continue treatment plan. Q15 min safety checks, CV Monitor response to medications. Monitor for safety in the milieu. Discharge on stabilization. Patient seen. Chart reviewed. Discussed with team. Obtain collateral contact info?as needed I spent minutes with the patient and/or on the patient floor today, greater than?50% of which was spent counseling/coordinating care. Reason for contiued inpatient stay Substantial Risk for: harm to self and rapid decompensation
[2022-04-21] MEDS: hydrOXYzine HCL 50 MG TABLET PO (11:42)
[2022-04-21 17:51] VITALS: BP 119/63; PULSE 89; RESP 16; TEMP 36.8; O2SAT 98
[2022-04-21] MEDS: Escitalopram Oxalate 10 MG TABLET PO (20:05)
[2022-04-21] MEDS: traZODone HCL 50 MG TABLET PO (22:04)
[2022-04-22 06:00] VITALS: BP 117/89; PULSE 102; RESP 18; TEMP 36.7; O2SAT 99
[2022-04-22] MEDS: clonazePAM 0.5 MG TABLET PO ×2 (07:50→20:59)
[2022-04-22] MEDS: hydrOXYzine HCL 50 MG TABLET PO ×2 (12:40→19:11)
--- NOTE | 2022-04-22 12:56 | P.PNPSI_ITS ---
Subjective Subjective Date of Service: 04/22/22 Reason For Visit: sectioned- behavioral pod Interim History: Patient seen. Discussed with team. Patient reports she is feeling anxious. It was something stupid. I don't want to talk about it. Reports feeling tightess in her stomach with the anxiety. No more dizziness after stopping clonidine. She is in control behaviorally. Endorses occasional SI. No intent of harm to self or others. 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 Well groomed, good hygiene, normal body habitus/ petite. Good eye contact, attentive. No Tics or Tremors. No abnormal involuntary movements. Calm, cooperative, engaged. Non-pressured speech, spontaneous with regular rate and rhythm, normal volume and prosody. No prolonged speech latency or dysarthria. Mood is ?anxious? affect is appropriate. Denies SI/SIB/HI upon inquiry. Denies A/VH or delusional thought content. Thoughts are coherent, organized. No known cognitive or memory impairment. Insight/ Judgment fair and adequate. Patient Appearance: Appropriate Patient Orientation: Person, Place, Time and Situation Level of Consciousness: Alert Patient Behavior: Talkative, Cooperative and Good Eye Contact Mood Description: Anxious Affect Description: Anxious Patient Cognition Impaired: No Ability to Follow Directions: Good Speech Pattern: Spontaneous Speech Memory Description: Episodic Impaired Diagnostics Vital Signs (24Hr): Vital Signs - 24 hr 04/21/22 17:51 04/22/22 06:00 Temperature 98.2 F 98.1 F Pulse Rate 89 102 H Respiratory Rate 16 18 Blood Pressure 119/63 117/89 Pulse Oximetry 98 99 BMI result Body Mass Index 21.2 Medications Medications Current Medications Acetaminophen (Acetaminophen 325 Mg Tablet) 650 mg PO Q6H PRN PRN Reason: Headache/Pain Mild Scale (1-3) Al Hydroxide/Mg Hydroxide (Magnesium Hydrox/Alum Hydrox 30 Ml Oral.Susp) 30 ml PO Q6H PRN PRN Reason: Heartburn/Nausea Last Admin: 04/15/22 08:56 Dose: 30 ml Documented by: Clonazepam (Clonazepam 0.5 Mg Tablet) 0.5 mg PO BID KI Last Admin: 04/22/22 07:50 Dose: 0.5 mg Documented by: Escitalopram Oxalate (Escitalopram Oxalate 10 Mg Tablet) 10 mg PO BEDTIME KI Last Admin: 04/21/22 20:05 Dose: 10 mg Documented by: Hydroxyzine HCl (Hydroxyzine Hcl 50 Mg Tablet) 50 mg PO Q6H PRN PRN Reason: Anxiety Last Admin: 04/22/22 12:40 Dose: 50 mg Documented by: Magnesium Hydroxide (Milk Of Magnesia 30 Ml Oral.Susp) 30 ml PO DAILY PRN PRN Reason: Constipation Last Admin: 04/13/22 23:36 Dose: 30 ml Documented by: Olanzapine (Olanzapine 5 Mg Tablet) 5 mg PO BEDTIME KI Last Admin: 04/21/22 22:04 Dose: 5 mg Documented by: Olanzapine (Olanzapine 5 Mg Tablet) 5 mg PO Q4H PRN PRN Reason: anger, agitation Last Admin: 04/21/22 15:36 Dose: 5 mg Documented by: Trazodone HCl (Trazodone Hcl 50 Mg Tablet) 50 mg PO BEDTIME PRN PRN Reason: Insomnia Last Admin: 04/21/22 22:04 Dose: 50 mg Documented by: Allergies Allergies Allergy/AdvReac Type Severity Reaction Status Date / Time No Known Allergies Allergy Verified 04/08/22 15:39 [No Known Allergies*] Assessment & Plan Assessment & Plan (1) MDD (major depressive disorder), recurrent episode, moderate: Status: Acute Code(s): F33.1 - Major depressive disorder, recurrent, moderate (2) Post traumatic stress disorder (PTSD): Status: Acute Code(s): F43.10 - Post-traumatic stress disorder, unspecified Plan Anika is a 21 y.o. Female who carries a dx of MDD recurrent and PTSD. She arrived to [facility] [facility] due to worsening depression and anger issues and said that she had a ?breakdown. She denied SI/SIB. Utox positive for cannabis. No alcohol abuse. No previous psych hx other than brief OP therapy. Plan: Pt is asleep, declined interview when I gently tried to wake her. 04/14/22: start lexapro 5 mg, increase to 10 mg as tolerated to target sx of depression, anxiety, and irritability. Reviewed risks and benefits including black box warning. 04/15/22: Continue current plan. 04/16/22: Olanzapine 5 mg hs and 5 mg q 4 hours prn agitation 04/18/22: Increase Lexapro to 10 mg daily, Clonidine 0.1 mg bid 04/19/22: Klonopin 0.5 mg bid 04/20 Continue treatment plan. 04/21. DC Clonidine secondary to dizziness and orthostasis. Continue treatment plan. 04/22 Continue treatment plan. Q15 min safety checks, CV Monitor response to medications. Monitor for safety in the milieu. Discharge on stabilization. Patient seen. Chart reviewed. Discussed with team. Obtain collateral contact info?as needed I spent minutes with the patient and/or on the patient floor today, greater than?50% of which was spent counseling/coordinating care. Reason for contiued inpatient stay Substantial Risk for: harm to self
[2022-04-22 16:45] VITALS: BP 119/73; PULSE 98; TEMP 36.6
[2022-04-22] MEDS: Nicotine Polacrilex 2 MG GUM BUCCAL (17:23)
[2022-04-22] MEDS: Escitalopram Oxalate 10 MG TABLET PO (20:58)
[2022-04-22] MEDS: OLANZapine 5 MG TABLET PO (20:59)
[2022-04-22] MEDS: traZODone HCL 50 MG TABLET PO ×2 (21:01→23:36)
[2022-04-23] MEDS: hydrOXYzine HCL 50 MG TABLET PO ×2 (01:42→10:33)
[2022-04-23] MEDS: traZODone HCL 50 MG TABLET PO (01:43)
[2022-04-23] MEDS: clonazePAM 0.5 MG TABLET PO ×2 (08:34→20:04)
[2022-04-23] MEDS: Acetaminophen 325 MG TABLET 650 MG PO ×2 (08:34→19:30)
[2022-04-23 08:45] VITALS: BP 126/73; PULSE 110; TEMP 36.6; O2SAT 97
[2022-04-23] MEDS: OLANZapine 5 MG TABLET PO ×4 (09:59→20:05)
[2022-04-23] MEDS: LORazepam 1 MG TABLET PO (10:39)
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
[2022-04-23 18:00] VITALS: BP 119/72; PULSE 112; RESP 18; TEMP 37.2; O2SAT 99
[2022-04-23] MEDS: Nicotine Polacrilex 2 MG GUM BUCCAL (18:06)
[2022-04-23] MEDS: OXcarbazepine 300 MG TABLET PO (20:04)
[2022-04-23] MEDS: Escitalopram Oxalate 10 MG TABLET PO (20:04)
[2022-04-24 06:00] VITALS: BP 115/87; PULSE 114; RESP 20; TEMP 36.3; O2SAT 97
[2022-04-24] MEDS: clonazePAM 0.5 MG TABLET PO ×2 (06:51→19:35)
[2022-04-24] MEDS: Acetaminophen 325 MG TABLET 650 MG PO (06:52)
[2022-04-24] MEDS: OXcarbazepine 300 MG TABLET PO ×2 (08:52→20:01)
[2022-04-24] MEDS: Cyanocobalamin (Vitamin B-12) 100 MCG TABLET PO (08:52)
[2022-04-24 10:15] LABS: Iron 101 mcg/dL (30-160); Percent Iron Saturation 31 % (15-50); Total Iron Binding Capacity 329 mcg/dL (228-428); Unsaturated Iron Binding 228 ug/dL
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
[2022-04-24 12:44] LABS: HIV AB/AG Nonreactive (Nonreactive); HIV Num 1 0.13 S/CO (0.00-0.99)
[2022-04-24 12:52] LABS: Syphilis Screen Nonreactive (Nonreactive)
[2022-04-24] MEDS: OLANZapine 5 MG TABLET PO ×2 (13:03→20:01)
--- NOTE | 2022-04-24 14:20 | HO.PSYCHPN ---
Subjective Subjective Date of Service: 04/24/22 Reason For Visit: sectioned- behavioral pod Subjective Notes: Conditional Voluntary Healthcare Proxy: No Guardianship: No Medical Problems Affecting Mental Status: No Interim History: I am feeling good. I miss my daughter, I am ready to go home to her. Family conference call with pt, Luis M DINERO and Dipti Westfall, angle shearer, and Lisa, pt's aunt. Pt will discharge 04/25/22 to home. She did receive a call from the father of her child and pt reports he told her he wants to pursue custody. 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 Pt reflective on her admission here. Identifies that she can get caught up in other's situations and become passionate, engaged in other's struggles and issues. She is attempting to focus on herself and set boundaries with issues which she is not involved with. Discussed that this is a learned skill with practice and not an innate trait that we have. She discussed this in detail and skills she has learned thus far to manage. Reports medications are helpful and without SE. Tolerating Trileptal which will replace Klonopin at some time. Klonopin dose to decrease at discharge. Medication Compliance: Yes Side effects from medications: No Attending Groups: Intermittent Review of Systems Acute medical concerns: No Medical Review of Systems: unchanged Review of Systems Reports behavioral changes Psychiatric: Reports no additional psychiatric complaints and Reports behavioral changes Mental Status Exam Mental Status Exam Patient Appearance: Appropriate Patient Orientation: Person, Place, Time and Situation Level of Consciousness: Alert Patient Behavior: Talkative, Distractible and Good Eye Contact Mood Description: Apprehensive Affect Description: Apprehensive Patient Cognition Impaired: No Ability to Follow Directions: Good Speech Pattern: Clear and Soft-Spoken Memory Description: Intact Hallucinations: None Delusions: Not Present Thought Process: Intact Thought Content: positive for Intact, positive for Circumstantial and positive for Suicidal Ideation (denies) Depressive Symptoms: Thoughts of /Suicide (denies) and Low Self Esteem Judgement: Good Diagnostics Vital Signs (24Hr): Vital Signs - 24 hr 04/23/22 18:00 04/24/22 06:00 Temperature 99 F 97.4 F Pulse Rate 112 H 114 H Respiratory Rate 18 20 Blood Pressure 119/72 115/87 Pulse Oximetry 99 97 BMI result Body Mass Index 21.2 Labs Labs: Laboratory Results - last 48 hr 04/24/22 04/24/22 04/24/22 09:00 09:00 09:00 Iron 101 TIBC 329 % Saturation 31 Unsat Iron Binding 228 T.pallidum Ab (EIA) Nonreactive HIV 1&2 Ab/P24 Ag 4thGn Nonreactive Medications Medications Current Medications Acetaminophen (Acetaminophen 325 Mg Tablet) 650 mg PO Q6H PRN PRN Reason: Headache/Pain Mild Scale (1-3) Last Admin: 04/24/22 06:52 Dose: 650 mg Documented by: Al Hydroxide/Mg Hydroxide (Magnesium Hydrox/Alum Hydrox 30 Ml Oral.Susp) 30 ml PO Q6H PRN PRN Reason: Heartburn/Nausea Last Admin: 04/15/22 08:56 Dose: 30 ml Documented by: Clonazepam (Clonazepam 0.5 Mg Tablet) 0.5 mg PO BID [facility] Last Admin: 04/24/22 06:51 Dose: 0.5 mg Documented by: Cyanocobalamin (Cyanocobalamin (Vitamin B-12) 100 Mcg Tablet) 100 mcg PO DAILY [facility] Last Admin: 04/24/22 08:52 Dose: 100 mcg Documented by: Escitalopram Oxalate (Escitalopram Oxalate 10 Mg Tablet) 10 mg PO BEDTIME [facility] Last Admin: 04/23/22 20:04 Dose: 10 mg Documented by: Hydroxyzine HCl (Hydroxyzine Hcl 50 Mg Tablet) 50 mg PO Q6H PRN PRN Reason: Anxiety Last Admin: 04/23/22 10:33 Dose: 50 mg Documented by: Magnesium Hydroxide (Milk Of Magnesia 30 Ml Oral.Susp) 30 ml PO DAILY PRN PRN Reason: Constipation Last Admin: 04/13/22 23:36 Dose: 30 ml Documented by: Nicotine Polacrilex (Nicotine Polacrilex 2 Mg Gum) 2 mg BUCCAL Q2H PRN PRN Reason: Nicotine Cravings Last Admin: 04/23/22 18:06 Dose: 2 mg Documented by: Olanzapine (Olanzapine 5 Mg Tablet) 5 mg PO BEDTIME [facility] Last Admin: 04/23/22 20:05 Dose: 5 mg Documented by: Olanzapine (Olanzapine 5 Mg Tablet) 5 mg PO Q4H PRN PRN Reason: anger, agitation Last Admin: 04/24/22 13:03 Dose: 5 mg Documented by: Oxcarbazepine (Oxcarbazepine 300 Mg Tablet) 300 mg PO BID [facility] Last Admin: 04/24/22 08:52 Dose: 300 mg Documented by: Trazodone HCl (Trazodone Hcl 50 Mg Tablet) 50 mg PO BEDTIME PRN PRN Reason: Insomnia Last Admin: 04/23/22 01:43 Dose: 50 mg Documented by: Allergies Allergies Allergy/AdvReac Type Severity Reaction Status Date / Time clonidine AdvReac Intermediate Hypotension Verified 04/23/22 18:29 Assessment & Plan Assessment & Plan (1) Shortness of breath: Status: Acute Code(s): R06.02 - Shortness of breath Plan 21 yo F admitted to . Medical consult requested for history of asthma in childhood; new sx with sob. Patient does not appear to be in asthma exacerbation -- she is not wheezing, no hypoxia, no respiratory muscle usage. Likely worsened by anxiety. Nonetheless, she should have formal testing with PFTs through her PCP's office given a prior history. In the interim, she can use PRN albuterol inhaler -- 2 puff q6 hours as needed for wheezing/shortness of breath. Will sign off. Please reconsult PRN. I spent minutes with the patient and/or on the patient floor today, greater than?50% of which was spent counseling/coordinating care. Patient educated on: therapeutic strategies Informed Consent: understands and further education needed Reason for contiued inpatient stay Substantial Risk for: stable for discharge
[2022-04-24 17:15] VITALS: BP 128/79; PULSE 78; TEMP 36.6
[2022-04-24] MEDS: Escitalopram Oxalate 10 MG TABLET PO (20:01)
[2022-04-25 06:00] VITALS: BP 122/80; PULSE 78; TEMP 36.7; O2SAT 98
[2022-04-25] MEDS: hydrOXYzine HCL 50 MG TABLET PO (07:08)
[2022-04-25] MEDS: Cyanocobalamin (Vitamin B-12) 100 MCG TABLET PO (08:11)
[2022-04-25] MEDS: OXcarbazepine 300 MG TABLET PO (08:11)
[2022-04-25] MEDS: clonazePAM 0.5 MG TABLET PO (08:11)
--- NOTE | 2022-05-21 02:56 | P.DS_ITS ---
DS: Providers Provider Date of Service: 04/25/22 Date of admission: 04/12/22 21:48 Date of discharge: 04/25/22 Primary care physician: None Physician Admitting clinician: Heydi Hernandez Attending physician on admission: Sorin Velázquez Consults: 04/23/22 13:55 Consult to Hospitalist Routine Consulting Provider: Hospitalist Reason For Exam: hx asthma in childhood; new sx with sob Attending physician on discharge: Sorin Velázquez Discharging clinician: Viky Duke DS: Diagnosis Discharge Diagnosis (1) MDD (major depressive disorder), recurrent episode, moderate: Status: Acute (2) Post traumatic stress disorder (PTSD): Status: Acute (3) Shortness of breath: Status: Resolved DS: Medications Discharge Medications Home Medications: Previous Rx's Medication Instructions Recorded albuterol sulfate 90 mcg/actuation 2 puff inhalation Q6H PRN 04/24/22 aerosol inhaler wheeze/sob #8.5 grams clonazepam 0.5 mg tablet (Klonopin) 0.25 mg PO BID PRN anxiety #14 tabs 04/24/22 cyanocobalamin (vitamin B-12) 100 100 mcg PO DAILY #15 tabs 04/24/22 mcg tablet (Vitamin B-12) escitalopram oxalate 10 mg tablet 10 mg PO BEDTIME #15 tabs 04/24/22 olanzapine 5 mg tablet 5 mg PO BEDTIME #15 tabs 04/24/22 olanzapine 5 mg tablet 5 mg PO Q4H PRN anger, agitation 04/24/22 #15 tabs oxcarbazepine 300 mg tablet 300 mg PO BID #28 tabs 04/24/22 Mental Status Exam Mental Status Exam Patient Appearance: Appropriate Patient Orientation: Person, Place, Time and Situation Level of Consciousness: Alert Patient Behavior: Talkative, Distractible and Good Eye Contact Mood Description: Apprehensive Affect Description: Apprehensive Patient Cognition Impaired: No Ability to Follow Directions: Good Speech Pattern: Clear and Soft-Spoken Memory Description: Intact Hallucinations: None Delusions: Not Present Thought Process: Intact Thought Content: positive for Intact, positive for Circumstantial and positive for Suicidal Ideation (denies) Depressive Symptoms: Thoughts of /Suicide (denies) and Low Self Esteem Judgement: Good DS: Summary Hospital Course Hospital Course: Admission to adult psychiatry for exacerbation of symptoms of major depression and PTSD. Escitalopram, Olanzapine, Oxcarbazepine were initiated. Klonopin prn was utilized during introduction of scheduled medications. Time spent discussing smoking cessation with patient: 3 to 10 minutes Status at Discharge Functional status at discharge: independent ambulation Overall status at discharge: patient is progressing back to baseline Time Spent with Patient Time attestation: Total time spent providing and/or coordinating discharge services:35 Time spent: Greater than 30 minutes Discharge Plan Discharge Patient Disposition: Home, Self-Care Discharge Diagnosis: PTSD Recurrent Major Depression, Moderate Referrals: Department of Mental Health ([facility]) [Other] - Tomorrow (Patient referred to [facility] for support in accessing mental health services Patient should follow-up with referral after discharge) [facility] [Other] - Tomorrow (Referral for outpatient therapist Patient should follow-up with agency following discharge regarding initial diagnostic appointment with therapist.) [facility] [Other] - Tomorrow (Referral for outpatient psychiatry services Patient should follow-up with [facility] to obtain scheduled appointments. Psychiatry appointments are tele-health so please check your email for a link to the appointments) [facility] [Other] - Tomorrow (Medication management appointment Patient should follow-up with [facility] to obtain scheduled appointments. Psychiatry appointments are tele-health so please check your email for a link to the appointments) Kelley Vo FNP [Nurse Practitioner] - 05/29/22 1:00 pm (IN OFFICE. PT. IS SCHEDULED FOR MAY BUT A MESSAGE WAS LEFT TO SEE IF THEY CAN SCHEDULE HER FOR AN EARLIER APPOINTMENT. OFFICE WILL CALL US BACK WITH THAT INFORMATION OR CALL PT. IF A SOONER APPOINTMENT IS AVAILABLE.) Discharge Medications: New cyanocobalamin (vitamin B-12) [Vitamin B-12] 100 mcg Tablet 100 mcg PO DAILY Qty: 15 1RF olanzapine 5 mg Tablet 5 mg PO BEDTIME Qty: 15 1RF olanzapine 5 mg Tablet 5 mg PO Q4H PRN (Reason: anger, agitation) Qty: 15 1RF oxcarbazepine 300 mg Tablet 300 mg PO BID Qty: 28 1RF escitalopram oxalate 10 mg Tablet 10 mg PO BEDTIME Qty: 15 1RF clonazepam [Klonopin] 0.5 mg tablet 0.25 mg PO BID PRN (Reason: anxiety) Qty: 14 1RF albuterol sulfate 90 mcg/actuation HFA aerosol inhaler 2 puff inhalation Q6H PRN (Reason: wheeze/sob) Qty: 8.5 0RF Discharge Orders: Discharge Order (Routine); Ordered 04/25/22 Ordered By: Viky Duke Diet: advance to usual diet Activity on Discharge: As tolerated Stand Alone Forms: Patient Portal Discharge page, Community Support Care Plan Goals: Stabilization of mood Health Concerns: PTSD Recurrent Major Depression Plan of Treatment: Attend scheduled follow up appointments Take medications as directed. Assessment: non-suicidal, non-psychotic Discharge Date/Time: 04/25/22 11:00
== END 2022-04-25 11:00 | disposition home or self-care (01) | DRG 751 ==
LOC: HO.ED 18:13 → HO.PM5 22:18
PROVIDERS: Admitting Provider Registered Nurse; Emergency Provider Emergency Medicine; Visit Provider Clinical Nurse Specialist Psychiatric/Mental Health, Adult
DX: F33.1 Major depressive disorder, recurrent, moderate (principal); F43.10 Post-traumatic stress disorder, unspecified; Z20.822 Contact with and (suspected) exposure to COVID-19; Z88.8 Allergy status to other drugs, medicaments and biological substances; Z79.899 Other long term (current) drug therapy
CPT/HCPCS: 36415; 80061; 80307; 81001; 81025; 82306; 82607; 82746; 83036; 83540; 84443; 86780; 87389; 87635; 99285

== ENCOUNTER → 2025-06-07 10:36 | Outpatient (BNV) | payer OTHER, SELFPAY ==
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
== END ==
PROVIDERS: Visit Provider Nurse Practitioner Family
DX: Z30.09 Encounter for other general counseling and advice on contraception (principal); Z71.89 Other specified counseling; F41.8 Other specified anxiety disorders; Z91.148 Patient's other noncompliance with medication regimen for other reason
CPT/HCPCS: 96127; 96160; 99205